=== PATIENT | female | born 1995 | race Caucasian/White ===

== ENCOUNTER → 2019-12-20 | Outpatient (CLI) | payer OTHER | END | disposition home or self-care (01) | LOC: LAB 13:51 | PROVIDERS: ATTEND Internal Medicine Pulmonary Disease | DX: Z20.828 Contact with and (suspected) exposure to other viral communicable diseases (principal) | CPT/HCPCS: C9803; U0003 ==

== ENCOUNTER 2021-07-01 14:19 | Observation (INO) | payer OTHER ==
[~2021-07-01] VITALS: Ht 165.1 cm; Wt 75.0 kg
[2021-07-01] MEDS ORDERED: IV NORMAL SALINE 1000ML BAG 1,000 ML IV SCH (15:00)
--- NOTE | 2021-07-01 15:09 | PHYS DOC ---
Past Medical History Past Medical History: UTI Additional Past Medical Histor: chiari malformation type 1 Past Surgical History: Tonsillectomy, Other Additional Past Surgical Histo: BILAT. EAR, FACE reconstruction,brain stem decompression Smoking Status: Never Smoker Alcohol Use: None Drug Use: None General Adult EDM: Chief Complaint: Palpitations HPI: HPI: Patient is a 25 year old female who presents with who states for the last 2 to 3 weeks she has been having episodes of her " heart beating really hard and fast causing her shortness of breath, nausea and dizziness". She states that she could just be sitting there and this happens. She was currently here at work on lunch when this happened again. She states that she stood up to go blow her nose and she felt dizzy and lightheaded and " saw stars". She states she gets intermittent sharp stabbing chest pains in the left side. Denies abdominal pain, fever, cough, headache, vision change, focal weakness, numbness or tingling, diarrhea, urinary symptoms, back pain, syncope, recent fall or striking her head. She takes propranolol for her migraines. She states that she started this medicine back in April. She has a history of a bilateral ear and face reconstruction, tonsillectomy, Chiari malformation, brainstem de compression. She wore a Holter monitor after going to [facility] on June 18 with her symptoms. She has been on a Holter monitor that was ordered by her PCP which his nurse practitioner with last name is Royer. Patient wore the Holter monitor June 24 through today. Currently no chest pain. Review of Systems: Review of Systems: Constitutional: Denies fever or chills. [] Eyes: Denies change in visual acuity. [] HENT: Denies nasal congestion or sore throat. [] Respiratory: Denies cough or +shortness of breath. [] Cardiovascular: + Intermittent chest pain or denies edema. + Palpitations [] GI: Denies abdominal pain, +nausea, denies vomiting, bloody stools or diarrhea. [] : Denies dysuria. [] Musculoskeletal: Denies back pain or joint pain. [] Integument: Denies rash. [] Neurologic: Denies headache, focal weakness or sensory changes. [] Endocrine: Denies polyuria or polydipsia. [] Lymphatic: Denies swollen glands. [] Psychiatric: Denies depression or anxiety. [] Heart Score: C/O Chest Pain: Yes HEART Score for Chest Pain: HEART Score for Chest Pain Response (Comments) Value History Slighlty/Non-Suspicious 0 ECG Nonspecific Repolarizatio 1 Age < 45 0 Risk Factors No Risk Factors 0 Troponin < Normal Limit 0 Total 1 Risk Factors: Risk Factors: DM, Current or recent (<one month) smoker, HTN, HLP, family history of CAD, obesity. Risk Scores: Score 0 - 3: 2.5% MACE over next 6 weeks - Discharge Home Score 4 - 6: 20.3% MACE over next 6 weeks - Admit for Clinical Observation Score 7 - 10: 72.7% MACE over next 6 weeks - Early Invasive Strategies Current Medications: Current Medications Medications (Trade) Dose Ordered Sig/Ralph Start Time Stop Time Status Last Admin Dose Admin Sodium Chloride 1,000 ml @ 1,000 mls/hr Q1H 07/01/21 15:00 07/01/21 15:59 Allergies: Allergies: Allergies Coded Allergies Type Severity Reaction Last Updated Verified cefdinir Allergy Severe anaphylaxis 07/01/21 Yes medium chain triglycerides Allergy Severe anaphylaxis 07/01/21 Yes azithromycin Allergy Intermediate hives 07/01/21 Yes sulfamethoxazole Allergy Intermediate hives 07/01/21 Yes trimethoprim Allergy Intermediate hives 07/01/21 Yes Uncoded Allergies Type Severity Reaction Last Updated Verified gadobenate dimeglumine Allergy Severe anaphylaxis, hives 07/01/21 Physical Exam: PE: Constitutional: Well developed, well nourished, no acute distress, non-toxic appearance. [] HENT: Normocephalic, atraumatic, bilateral external ears normal, oropharynx moist, no oral exudates, nose normal. [] Eyes: PERRLA, EOMI, conjunctiva normal, no discharge. [] Neck: Normal range of motion, no tenderness, supple, no stridor. [] Cardiovascular:Heart rate regular rhythm with intermittent PVC, no murmur [] Lungs & Thorax: Bilateral breath sounds clear to auscultation [] Abdomen: Bowel sounds normal, soft, no tenderness, no masses, no pulsatile masses. [] Skin: Warm, dry, no erythema, no rash. [] Back: No tenderness, no CVA tenderness. [] Extremities: No tenderness, no cyanosis, no clubbing, ROM intact, no edema. [] Neurologic: Alert and oriented X 3, normal motor function, normal sensory function, no focal deficits noted. [] Psychologic: Affect normal, judgement normal, mood normal. [] Current Patient Data: Vital Signs: Vital Signs Date Time Temp Pulse Resp B/P (MAP) Pulse Ox O2 Delivery O2 Flow Rate FiO2 07/01/21 14:29 97.8 91 20 122/66 (84) 98 Room Air 97.8 EKG: EK and read by Dr. Eaton is a sinus rhythm and no STEMI Radiology/Procedures: Radiology/Procedures: [] Impression: [facility] [address] [place] [address] IMAGING REPORT Signed PATIENT: RAJESH JUSTIN DACCOUNT: [id number] : 1995 LOCATION: ER AGE: 25 SEX: F EXAM STATUS: PRE ER ORD. PHYSICIAN: DEJAH MAGANA APRN REASON: palpitations PROCEDURE: PORTABLE CHEST 1V Study: XR CHEST 1V Indication: Palpitations. Comparison: None. Findings: The cardiomediastinal silhouette and reema are within normal limits. No localized airspace opacity, pleural effusion or pneumothorax. Relatively symmetric haziness at the periphery of the lower lungs is typical of summation artifact from the breasts. Impression: No acute radiographic abnormality of the chest. Electronically signed by: MELISSA WASHINGTON MD (07/01/2021 3:04 PM) [facility] DICTATED and SIGNED BY: MELISSA WASHINGTON MD DATE: 07/01/21 [id number] [facility] [address] [place] [address] IMAGING REPORT Signed PATIENT: RAJESH KRUGER ACCOUNT: [id number] : 1995 LOCATION: ER AGE: 25 SEX: F EXAM STATUS: REG ER ORD. PHYSICIAN: DEJAH MAGANA APRN REASON: frequent pvc, chest pain with dizziness, soa and tachycardia PROCEDURE: CT ANGIOGRAPHY CHEST Exam: CT of chest with contrast INDICATION: Frequent PTC, chest pain TECHNIQUE: Sequential axial images through the chest obtained following the administration of 98 mL of Isovue-370 IV contrast. Sagittal and coronal reformatted images were reconstructed from the axial data and reviewed. Exposure: One or more of the following in the visualized dose reduction techniques were utilized for this examination: 1. Automated exposure control 2. Adjustment of the MA and/or KV according to patient size 3. Use of iterative of reconstructive technique Comparisons: Chest x-ray same day FINDINGS: Visualized portions of the thyroid are unremarkable. No enlarged mediastinal lymph nodes are identified. Heart size is normal. No pericardial effusion. Thoracic aorta has normal course and caliber. Pulmonary artery is not enlarged. No pulmonary embolus identified within the main, lobar or segmental pulmonary arteries. Airways are patent. No consolidation or pneumothorax. No suspicious lung nodules. No pleural effusion or thickening. Visualized upper abdomen is unremarkable. No suspicious osseous lesions or acute fractures. IMPRESSION: No pulmonary embolus identified within the main, lobar or segmental pulmonary arteries. Electronically signed by: Lety Jones MD (07/01/2021 8:02 PM) [facility] DICTATED and SIGNED BY: LETY JONES MD DATE: 07/01/[id number] 0 Course & Med Decision Making: Course & Med Decision Making Pertinent Labs and Imaging studies reviewed. (See chart for details) See HPI. Alert and oriented x4. Speaks in full clear sentences. Skin pink warm and dry. No edema. Patient called out stating that she was having a pounding heartbeat with shortness of breath and some chest pain and when looking at the monitor she was having some PVCs and her heart rate jumped up to 104- 105. It then dropped back down into 80 to 90s. Radiologist called and told me that her chest angio showed no PE and no other acute findings. She continues to have episodes with some frequent PVCs. This is intermittent. Patient is very anxious. I spoke with the patient and told her that she is probably stable to go home but if she was worried I could also admit her to the hospital for observation. I did talk to Dr. Avalos and he stated he could either try to get her close follow-up or she can be seen in the morning and be observed overnight. Patient states she would rather be observed overnight. Patient states that she supposed to turn in the Holter monitor tomorrow and so she does not know when she is even cannot have results back. I offered the patient admission due to her becoming symptomatic today with shortness of breath, chest pain, dizziness and near syncope. Blood work is otherwise unremarkable. [] Dragon Disclaimer: Dragon Disclaimer: This electronic medical record was generated, in whole or in part, using a voice recognition dictation system. Departure Departure Impression: Primary Impression: Arrhythmia Qualified Codes: I49.9 - Cardiac arrhythmia, unspecified Disposition: ADMITTED INPATIENT Admitting Physician: HIMTon Condition: STABLE Referrals: JOHANNA ISBELL MD (PCP) DEJAH MAGANA APRN Jul 01, 2021 15:09
[2021-07-01 15:19] LABS: BILIRUBIN,URINE NEGATIVE (NEG); CLARITY,URINE CLEAR; COLOR,URINE YELLOW; NITRITE,URINE NEGATIVE (NEG); PH,URINE 6.5 (<5.0-8.0); PROTEIN,URINE NEGATIVE (NEG-TRACE); UROBILINOGEN,URINE 0.2 mg/dL (0.2 mg/dL)
[2021-07-01 15:26] LABS: BARBITURATES NEG (NEG); BENZODIAZEPINES POS (NEG); CANNABINOIDS NEG (NEG); COCAINE NEG (NEG); METHADONE NEG (NEG); OPIATES NEG (NEG); PHENCYCLIDINE NEG (NEG)
[2021-07-01 15:29] LABS: AMPHETAMINE/METHAMPHETAMINE NEG (NEG)
[2021-07-01 15:32] LABS: BASO % 1 % (0-3); EOS # 0.2 x10^3/uL (0.0-0.7); EOS % 3 % (0-3); HEMATOCRIT 37.4 % (36.0-47.0); HEMOGLOBIN 12.3 g/dL (12.0-15.5); LYMPH # 2.8 x10^3/uL (1.0-4.8); LYMPH % 44 % (24-48); MEAN CORPUSCULAR HEMOGLOBIN 30 pg (25-35); MEAN CORPUSCULAR HGB CONC 33 g/dL (31-37); MEAN CORPUSCULAR VOLUME 91 fL (79-100); MONO # 0.5 x10^3/uL (0.0-1.1); MONO % 8 % (0-9); NEUT # 2.9 x10^3/uL (1.8-7.7); NEUT % 45 % (31-73); PLATELET COUNT 256 x10^3/uL (140-400); RED BLOOD COUNT 4.13 x10^6/uL (3.50-5.40); RED CELL DISTRIBUTION WIDTH 12.8 % (11.5-14.5); WHITE BLOOD COUNT 6.3 x10^3/uL (4.0-11.0)
[2021-07-01 15:38] LABS: BACTERIA,URINE 0 /HPF (0-FEW); RBC,URINE 0 /HPF (0-2); WBC,URINE 0 /HPF (0-4)
[2021-07-01 15:42] LABS: CALCIUM 8.4 mg/dL (8.5-10.1); CREATININE 0.9 mg/dL (0.6-1.0); GFR 77.6; POTASSIUM 3.5 mmol/L (3.5-5.1)
[2021-07-01 15:48] LABS: ALBUMIN 3.5 g/dL (3.4-5.0); ALBUMIN/GLOBULIN RATIO 0.9 (1.0-1.7); MAGNESIUM 1.9 mg/dL (1.8-2.4); TOTAL BILIRUBIN 0.3 mg/dL (0.2-1.0); TOTAL PROTEIN 7.5 g/dL (6.4-8.2)
[2021-07-01] MEDS ORDERED: IOHEXOL 350 MG/ML 100 ML VIAL. IV ONE (16:00)
[2021-07-01] MEDS ORDERED: CONTRAST GIVEN. MC PRN (16:15)
--- NOTE | 2021-07-01 19:54 | PDOC1 ---
History and Physical Date of Service: DOS: DATE: 07/01/21 TIME: 19:47 Chief Complaint: Chief Complain: Palpitations History of Present Illness: HPI: 25 year old female who presents with who states for the last 2 to 3 weeks she has been having episodes of her " heart beating really hard and fast causing her shortness of breath, nausea and dizziness". She states that she could just be sitting there and this happens. She was currently here at work on lunch when this happened again. She states that she stood up to go blow her nose and she felt dizzy and lightheaded and " saw stars". She states she gets intermittent sharp stabbing chest pains in the left side. Denies abdominal pain, fever, cough, headache, vision change, focal weakness, numbness or tingling, diarrhea, urinary symptoms, back pain, syncope, recent fall or striking her head. She takes propranolol for her migraines. She states that she started this medicine back in April. She has a history of a bilateral ear and face reconstruction, tonsillectomy, Chiari malformation, brainstem decompression. She wore a Holter monitor after going to [facility] on June 18 with her symptoms. She has been on a Holter monitor that was ordered by her PCP which his nurse practitioner with last name is Royer. Patient wore the Holter monitor June 24 through today. Currently no chest pain. Past Medical/Surgical History: PMH/PSH: Past Medical History: UTI, chiari malformation type 1 Past Surgical History: Tonsillectomy, BILAT. EAR, FACE reconstruction,brain stem decompression Smoking Status: Never Smoker Alcohol Use: None Drug Use: None Allergies: Allergies: Coded Allergies: cefdinir (Verified Allergy, Severe, anaphylaxis, 07/01/21) gadobenic acid (Verified Allergy, Severe, ANAPHYLAXIS, HIVES, 07/01/21) gadobenate dimeglumine medium chain triglycerides (Verified Allergy, Severe, anaphylaxis, 07/01/21) azithromycin (Verified Allergy, Intermediate, hives, 07/01/21) sulfamethoxazole (Verified Allergy, Intermediate, hives, 07/01/21) trimethoprim (Verified Allergy, Intermediate, hives, 07/01/21) Family History: Family History: Reviewed with no relevant findings in the chart Social History: Social History: Smoking Status: Never Smoker Alcohol Use: None Drug Use: None Current Medications: Current Medications Current Medications Sodium Chloride 1,000 ml @ 1,000 mls/hr Q1H IV Last administered on 07/01/21at 15:00; Start 07/01/21 at 15:00; Stop 07/01/21 at 15:59; Status DC Iohexol (Omnipaque 350 Mg/ml) 100 ml 1X ONCE IV Last administered on 07/01/21at 16:14; Start 07/01/21 at 16:00; Stop 07/01/21 at 16:05; Status DC Info (CONTRAST GIVEN -- Rx MONITORING) 1 each PRN DAILY PRN MC SEE COMMENTS; Start 07/01/21 at 16:15; Stop 07/03/21 at 16:14 ROS: Review of Systems Review of System REVIEW OF SYSTEMS: GENERAL: Denies weakness SKIN: No bruising, hair changes or rashes. EYES: No blurred, double or loss of vision. NOSE AND THROAT: No history of nosebleeds, hoarseness or sore throat. HEART: Positive for palpitations LUNGS: Denies cough, hemoptysis, wheezing or shortness of breath. GASTROINTESTINAL: Denies changes in appetite, nausea, vomiting, diarrhea or constipation. GENITOURINARY: No history of frequency, urgency, hesitancy or nocturia. NEUROLOGIC: Denies history of numbness, tingling, or tremor. PSYCHIATRIC: No history of panic, anxiety or depression. ENDOCRINE: No history of heat or cold intolerance, polyuria or polydipsia. EXTREMITIES: Denies joint pain, pain on walking or stiffness. Physical Exam: Vital Signs: Vital Signs Date Time Temp Pulse Resp B/P (MAP) Pulse Ox O2 Delivery O2 Flow Rate FiO2 07/01/21 19:15 96 16 122/67 (85) 100 07/01/21 14:45 98.6 Room Air 98.6 Physcial Exam: General: Well developed, well nourished, no acute distress, well appearing HEENT: Pupils equally round and reactive to light, EOMI, no discharge, normal conjunctiva Neck: Supple, no nuchal rigidity, no JVD, trachea midline, no tenderness Cardiac: RRR, no murmurs, no gallops, no rubs Chest/Lungs: CTAB, no wheeze, no rhonchi, no crackles Abdomen: soft, non-distended, no guarding, no peritoneal signs, non-tender Back: No tenderness Extremities: no edema, pulses intact, non-tender,capillary refill <3 sec b ilateral upper and lower extremities, Neuro: Alert and oriented x 4, no focal deficits, normal speech 39 Labs: Labs: Laboratory Tests Test 07/01/21 14:50 07/01/21 14:57 07/01/21 15:10 07/01/21 15:38 Urine Collection Type Unknown Urine Color Yellow Urine Clarity Clear Urine pH 6.5 (<5.0-8.0) Urine Specific [place] 1.020 (1.000-1.030) Urine Protein Negative mg/dL (NEG-TRACE) Urine Glucose (UA) Negative mg/dL (NEG) Urine Ketones (Stick) Negative mg/dL (NEG) Urine Blood Negative (NEG) Urine Nitrite Negative (NEG) Urine Bilirubin Negative (NEG) Urine Urobilinogen Dipstick 0.2 mg/dL (0.2 mg/dL) Urine Leukocyte Esterase Negative (NEG) Urine RBC 0 /HPF (0-2) Urine WBC 0 /HPF (0-4) Urine Squamous Epithelial Cells Few /LPF Urine Bacteria 0 /HPF (0-FEW) Urine Opiates Screen Neg (NEG) Urine Methadone Screen Neg (NEG) Urine Barbiturates Neg (NEG) Urine Phencyclidine Screen Neg (NEG) Urine Amphetamine/Methamphetamine Neg (NEG) Urine Benzodiazepines Screen Pos (NEG) Urine Cocaine Screen Neg (NEG) Urine Cannabinoids Screen Neg (NEG) Urine Ethyl Alcohol Neg (NEG) Bedside Urine HCG, Qualitative Hcg negative (Negative) White Blood Count 6.3 x10^3/uL (4.0-11.0) Red Blood Count 4.13 x10^6/uL (3.50-5.40) Hemoglobin 12.3 g/dL (12.0-15.5) Hematocrit 37.4 % (36.0-47.0) Mean Corpuscular Volume 91 fL (79-100) Mean Corpuscular Hemoglobin 30 pg (25-35) Mean Corpuscular Hemoglobin Concent 33 g/dL (31-37) Red Cell Distribution Width 12.8 % (11.5-14.5) Platelet Count 256 x10^3/uL (140-400) Neutrophils (%) (Auto) 45 % (31-73) Lymphocytes (%) (Auto) 44 % (24-48) Monocytes (%) (Auto) 8 % (0-9) Eosinophils (%) (Auto) 3 % (0-3) Basophils (%) (Auto) 1 % (0-3) Neutrophils # (Auto) 2.9 x10^3/uL (1.8-7.7) Lymphocytes # (Auto) 2.8 x10^3/uL (1.0-4.8) Monocytes # (Auto) 0.5 x10^3/uL (0.0-1.1) Eosinophils # (Auto) 0.2 x10^3/uL (0.0-0.7) Basophils # (Auto) 0.0 x10^3/uL (0.0-0.2) Sodium Level 140 mmol/L (136-145) Potassium Level 3.5 mmol/L (3.5-5.1) Chloride Level 105 mmol/L (98-107) Carbon Dioxide Level 25 mmol/L (21-32) Anion Gap 10 (6-14) Blood Urea Nitrogen 17 mg/dL (7-20) Creatinine 0.9 mg/dL (0.6-1.0) Estimated GFR (Cockcroft-Gault) 77.6 BUN/Creatinine Ratio 19 (6-20) Glucose Level 121 mg/dL (70-99) Calcium Level 8.4 mg/dL (8.5-10.1) Magnesium Level 1.9 mg/dL (1.8-2.4) Total Bilirubin 0.3 mg/dL (0.2-1.0) Aspartate Amino Transf (AST/SGOT) 19 U/L (15-37) Alanine Aminotransferase (ALT/SGPT) 27 U/L (14-59) Alkaline Phosphatase 77 U/L (46-116) Troponin I High Sensitivity 4 ng/L (4-50) JX-Evi-H-Type Natriuretic Peptide 31 pg/mL (0-124) Total Protein 7.5 g/dL (6.4-8.2) Albumin 3.5 g/dL (3.4-5.0) Albumin/Globulin Ratio 0.9 (1.0-1.7) Thyroid Stimulating Hormone (TSH) 1.051 uIU/mL (0.358-3.74) SARS-CoV-2 Antigen (Rapid) Negative (NEGATIVE) Test 07/01/21 18:00 Troponin I High Sensitivity 4 ng/L (4-50) Laboratory Tests Test 07/01/21 14:50 07/01/21 14:57 07/01/21 15:10 07/01/21 15:38 Urine Collection Type Unknown Urine Color Yellow Urine Clarity Clear Urine pH 6.5 (<5.0-8.0) Urine Specific [place] 1.020 (1.000-1.030) Urine Protein Negative mg/dL (NEG-TRACE) Urine Glucose (UA) Negative mg/dL (NEG) Urine Ketones (Stick) Negative mg/dL (NEG) Urine Blood Negative (NEG) Urine Nitrite Negative (NEG) Urine Bilirubin Negative (NEG) Urine Urobilinogen Dipstick 0.2 mg/dL (0.2 mg/dL) Urine Leukocyte Esterase Negative (NEG) Urine RBC 0 /HPF (0-2) Urine WBC 0 /HPF (0-4) Urine Squamous Epithelial Cells Few /LPF Urine Bacteria 0 /HPF (0-FEW) Urine Opiates Screen Neg (NEG) Urine Methadone Screen Neg (NEG) Urine Barbiturates Neg (NEG) Urine Phencyclidine Screen Neg (NEG) Urine Amphetamine/Methamphetamine Neg (NEG) Urine Benzodiazepines Screen Pos (NEG) Urine Cocaine Screen Neg (NEG) Urine Cannabinoids Screen Neg (NEG) Urine Ethyl Alcohol Neg (NEG) Bedside Urine HCG, Qualitative Hcg negative (Negative) White Blood Count 6.3 x10^3/uL (4.0-11.0) Red Blood Count 4.13 x10^6/uL (3.50-5.40) Hemoglobin 12.3 g/dL (12.0-15.5) Hematocrit 37.4 % (36.0-47.0) Mean Corpuscular Volume 91 fL (79-100) Mean Corpuscular Hemoglobin 30 pg (25-35) Mean Corpuscular Hemoglobin Concent 33 g/dL (31-37) Red Cell Distribution Width 12.8 % (11.5-14.5) Platelet Count 256 x10^3/uL (140-400) Neutrophils (%) (Auto) 45 % (31-73) Lymphocytes (%) (Auto) 44 % (24-48) Monocytes (%) (Auto) 8 % (0-9) Eosinophils (%) (Auto) 3 % (0-3) Basophils (%) (Auto) 1 % (0-3) Neutrophils # (Auto) 2.9 x10^3/uL (1.8-7.7) Lymphocytes # (Auto) 2.8 x10^3/uL (1.0-4.8) Monocytes # (Auto) 0.5 x10^3/uL (0.0-1.1) Eosinophils # (Auto) 0.2 x10^3/uL (0.0-0.7) Basophils # (Auto) 0.0 x10^3/uL (0.0-0.2) Sodium Level 140 mmol/L (136-145) Potassium Level 3.5 mmol/L (3.5-5.1) Chloride Level 105 mmol/L (98-107) Carbon Dioxide Level 25 mmol/L (21-32) Anion Gap 10 (6-14) Blood Urea Nitrogen 17 mg/dL (7-20) Creatinine 0.9 mg/dL (0.6-1.0) Estimated GFR (Cockcroft-Gault) 77.6 BUN/Creatinine Ratio 19 (6-20) Glucose Level 121 mg/dL (70-99) Calcium Level 8.4 mg/dL (8.5-10.1) Magnesium Level 1.9 mg/dL (1.8-2.4) Total Bilirubin 0.3 mg/dL (0.2-1.0) Aspartate Amino Transf (AST/SGOT) 19 U/L (15-37) Alanine Aminotransferase (ALT/SGPT) 27 U/L (14-59) Alkaline Phosphatase 77 U/L (46-116) Troponin I High Sensitivity 4 ng/L (4-50) PQ-Iba-M-Type Natriuretic Peptide 31 pg/mL (0-124) Total Protein 7.5 g/dL (6.4-8.2) Albumin 3.5 g/dL (3.4-5.0) Albumin/Globulin Ratio 0.9 (1.0-1.7) Thyroid Stimulating Hormone (TSH) 1.051 uIU/mL (0.358-3.74) SARS-CoV-2 Antigen (Rapid) Negative (NEGATIVE) Test 07/01/21 18:00 Troponin I High Sensitivity 4 ng/L (4-50) Images: Images PROCEDURE: PORTABLE CHEST 1V Study: XR CHEST 1V Indication: Palpitations. Comparison: None. Findings: The cardiomediastinal silhouette and reema are within normal limits. No localized airspace opacity, pleural effusion or pneumothorax. Relatively symmetric haziness at the periphery of the lower lungs is typical of summation artifact from the breasts. Impression: No acute radiographic abnormality of the chest. Assessment/Plan Assessment/Plan Symptomatic tachyarrhythmia with frequent PVCs History of Chiari malformation Admit to hospitalist service for further management Continue telemetry monitoring Pending cardiology consult Hold beta-blockers SCD for DVT prophylaxis Cardiac diet CODE STATUS full Discussed with RN and SW Disposition inpatient management as above, pending cardiology evaluation DPOA: Justifications for Admission Other Justification SANDRA MONTIEL MD Jul 01, 2021 19:54
--- NOTE | 2021-07-01 19:55 | EKG ---
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
--- NOTE | 2021-07-01 20:05 | RAD ---
Exam: CT of chest with contrast INDICATION: Frequent PTC, chest pain TECHNIQUE: Sequential axial images through the chest obtained following the administration of 98 mL o f Isovue-370 IV contrast. Sagittal and coronal reformatted images were reconstructed from the axial d rodger and reviewed. Exposure: One or more of the following in the visualized dose reduction techniques were utilized for this examination: 1. Automated exposure control 2. Adjustment of the MA and/or KV according to patient size 3. Use of iterative of reconstructive technique Comparisons: Chest x-ray same day FINDINGS: Visualized portions of the thyroid are unremarkable. No enlarged mediastinal lymph nodes are identifi ed. Heart size is normal. No pericardial effusion. Thoracic aorta has normal course and caliber. Pulmonar y artery is not enlarged. No pulmonary embolus identified within the main, lobar or segmental pulmona ry arteries. Airways are patent. No consolidation or pneumothorax. No suspicious lung nodules. No pleural effusion or thickening. Visualized upper abdomen is unremarkable. No suspicious osseous lesions or acute fractures. IMPRESSION: No pulmonary embolus identified within the main, lobar or segmental pulmonary arteries. Electronically signed by: Lety Newton MD (07/01/2021 8:02 PM) [facility]
--- NOTE | 2021-07-01 22:00 | NUR ---
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 POc explained vs obtained and stable call light placed ion reach will resume care and continue to monitor pt.
[2021-07-01 22:10] VITALS: BP 110/70
[2021-07-02] MEDS ORDERED: DROS4TAB PO (02:21)
[2021-07-02] MEDS ORDERED: SUMA50TA4 PO (02:21)
[2021-07-02] MEDS ORDERED: PROP60CA44 PO (02:21)
[2021-07-02] MEDS ORDERED: TIZA-75 PO (02:21)
[2021-07-02 02:29] VITALS: BP 106/61
[2021-07-02] MEDS ORDERED: ACET500T68 PO (02:29)
[2021-07-02 07:00] VITALS: BP 103/64
[2021-07-02] MEDS ORDERED: tiZANidine 4 MG TABLET. PO PRN (09:15)
[2021-07-02] MEDS ORDERED: ONDANSETRON PF 4 MG/2 ML VIAL. IVP PRN (09:30)
[2021-07-02] MEDS ORDERED: ELECTROLYTE (NON-ICU) PROTOCOL. MC PRN (09:30)
[2021-07-02] MEDS ORDERED: ZOLPIDEM 5 MG TABLET. PO PRN (09:30)
[2021-07-02] MEDS ORDERED: oxyCODONE/APAP 5/325 1 TAB TABLET PO PRN ×2 (09:30)
[2021-07-02] MEDS ORDERED: CALCIUM CARBONATE 500 MG TAB.CHEW PO PRN (09:30)
[2021-07-02] MEDS ORDERED: SENNOSIDES/DOCUSATE 8.6/50MG TABLET. PO SCH (10:00)
[2021-07-02] MEDS ORDERED: PROPRANOLOL ER 60 MG CAP.SA.24H. PO SCH (10:00)
[2021-07-02] MEDS: HEPARIN for SUB-Q USE 5,000 UNIT/ML VIAL. SQ SCH ×2 (10:12→14:58)
[2021-07-02] MEDS: ACETAMINOPHEN 325 MG TABLET. PO PRN ×2 (10:19→16:40)
--- NOTE | 2021-07-02 10:28 | PDOC2 ---
NEEMA WOODSON AGRICULTURAL SYSTEMS SPECIALIST 07/02/21 1028: CARDIAC CONSULT DATE OF CONSULT Date of Consult DATE: 07/02/21 TIME: 10:09 REASON FOR CONSULT Reason for Consult: Arrhythmia REFERRING PHYSICIAN Referring Physician: Stephanie SOURCE Source: Chart review, Patient HISTORY OF PRESENT ILLNESS HISTORY OF PRESENT ILLNESS This is a pleasant 25 yo female admitted for complains of palpitations. She has been having episodes of fast heart rate at home noting at times in the 120s and at times feeling dizzy. No prior fever and chills. Also at times feels like chest pressure and noting it whenever she has PVC as she noted while she was having trigeminy in ED as she showed me the picture of her telemetry. No prior falls or injury. No covid-19 s/s and she is unvaccinated. She went to an [employer] and was issued with an MCOT which is due to be returned today. Denies any recreationsl drug use nor tobacco. No stimulants. She does take propranolol regularly for her migraine and she has not taken sumatriptan in the last few days. She tried to cough when her heart rate was fast but it did not quit. No hx of VTE, valvular disease as a child but her mother does have similar fluctuations in her HR. PAST MEDICAL HISTORY CENTRAL NERVOUS SYSTEM: Migraine (with aura), Other (chiari malformation with surgical decompression) PAST SURGICAL HISTORY Past Surgical History: Tonsillectomy, Other (facial reconstruction) FAMILY HISTORY Family History: Hypertension, Other (mother has tachycardia issue as well unknown type) SOCIAL HISTORY Smoke: No ALCOHOL: occassional Drugs: None Lives: with Family CURRENT MEDICATIONS CURRENT MEDICATIONS Current Medications Medications (Trade) Dose Ordered Sig/Ralph Route PRN Reason Start Time Stop Time Status Last Admin Dose Admin Sodium Chloride 1,000 ml @ 1,000 mls/hr Q1H IV 07/01/21 15:00 07/01/21 15:59 DC 07/01/21 15:00 Iohexol (Omnipaque 350 Mg/ml) 100 ml 1X ONCE IV 07/01/21 16:00 07/01/21 16:05 DC 07/01/21 16:14 ALLERGIES ALLERGIES: Coded Allergies: cefdinir (Verified Allergy, Severe, anaphylaxis, 07/01/21) gadobenic acid (Verified Allergy, Severe, ANAPHYLAXIS, HIVES, 07/01/21) gadobenate dimeglumine medium chain triglycerides (Verified Allergy, Severe, anaphylaxis, 07/01) shrimp (Verified Allergy, Severe, 07/01/21) azithromycin (Verified Allergy, Intermediate, hives, 07/01/21) sulfamethoxazole (Verified Allergy, Intermediate, hives, 07/01/21) trimethoprim (Verified Allergy, Intermediate, hives, 07/01/21) ROS Review of System 14 point ROS evaluated with pertinent positives noted per HPI PHYSICAL EXAM General: Alert, Oriented X3, Cooperative, No acute distress HEENT: Atraumatic, Mucous membr. moist/pink Lungs: Clear to auscultation, Normal air movement Heart: Regular rate (SR), Normal S1, Normal S2, No murmurs Abdomen: Soft, No tenderness Extremities: No cyanosis, No edema Skin: No breakdown, No significant lesion Neuro: Normal speech, Sensation intact Psych/Mental Status: Mental status NL, Mood NL MUSCULOSKELETAL: Osteoarthritic changes both hands VITALS/I&O VITALS/I&O: Vital Signs Date Time Temp Pulse Resp B/P (MAP) Pulse Ox O2 Delivery O2 Flow Rate FiO2 07/02/21 07:00 99.0 116 16 103/64 (77) 97 Room Air 99.0 I & O 07/01/21 07/01/21 07/02/21 15:00 23:00 07:00 Intake Total 300 ml Balance 300 ml LABS Lab: Laboratory Tests Test 07/01/21 14:50 07/01/21 14:57 07/01/21 15:10 07/01/21 15:38 Urine Collection Type Unknown Urine Color Yellow Urine Clarity Clear Urine pH 6.5 (<5.0-8.0) Urine Specific [place] 1.020 (1.000-1.030) Urine Protein Negative mg/dL (NEG-TRACE) Urine Glucose (UA) Negative mg/dL (NEG) Urine Ketones (Stick) Negative mg/dL (NEG) Urine Blood Negative (NEG) Urine Nitrite Negative (NEG) Urine Bilirubin Negative (NEG) Urine Urobilinogen Dipstick 0.2 mg/dL (0.2 mg/dL) Urine Leukocyte Esterase Negative (NEG) Urine RBC 0 /HPF (0-2) Urine WBC 0 /HPF (0-4) Urine Squamous Epithelial Cells Few /LPF Urine Bacteria 0 /HPF (0-FEW) Urine Opiates Screen Neg (NEG) Urine Methadone Screen Neg (NEG) Urine Barbiturates Neg (NEG) Urine Phencyclidine Screen Neg (NEG) Urine Amphetamine/Methamphetamine Neg (NEG) Urine Benzodiazepines Screen Pos (NEG) Urine Cocaine Screen Neg (NEG) Urine Cannabinoids Screen Neg (NEG) Urine Ethyl Alcohol Neg (NEG) POC Urine HCG, Qualitative Hcg negative (Negative) White Blood Count 6.3 x10^3/uL (4.0-11.0) Red Blood Count 4.13 x10^6/uL (3.50-5.40) Hemoglobin 12.3 g/dL (12.0-15.5) Hematocrit 37.4 % (36.0-47.0) Mean Corpuscular Volume 91 fL (79-100) Mean Corpuscular Hemoglobin 30 pg (25-35) Mean Corpuscular Hemoglobin Concent 33 g/dL (31-37) Red Cell Distribution Width 12.8 % (11.5-14.5) Platelet Count 256 x10^3/uL (140-400) Neutrophils (%) (Auto) 45 % (31-73) Lymphocytes (%) (Auto) 44 % (24-48) Monocytes (%) (Auto) 8 % (0-9) Eosinophils (%) (Auto) 3 % (0-3) Basophils (%) (Auto) 1 % (0-3) Neutrophils # (Auto) 2.9 x10^3/uL (1.8-7.7) Lymphocytes # (Auto) 2.8 x10^3/uL (1.0-4.8) Monocytes # (Auto) 0.5 x10^3/uL (0.0-1.1) Eosinophils # (Auto) 0.2 x10^3/uL (0.0-0.7) Basophils # (Auto) 0.0 x10^3/uL (0.0-0.2) Sodium Level 140 mmol/L (136-145) Potassium Level 3.5 mmol/L (3.5-5.1) Chloride Level 105 mmol/L (98-107) Carbon Dioxide Level 25 mmol/L (21-32) Anion Gap 10 (6-14) Blood Urea Nitrogen 17 mg/dL (7-20) Creatinine 0.9 mg/dL (0.6-1.0) Estimated GFR (Cockcroft-Gault) 77.6 BUN/Creatinine Ratio 19 (6-20) Glucose Level 121 mg/dL (70-99) H Calcium Level 8.4 mg/dL (8.5-10.1) L Magnesium Level 1.9 mg/dL (1.8-2.4) Total Bilirubin 0.3 mg/dL (0.2-1.0) Aspartate Amino Transferase (AST) 19 U/L (15-37) Alanine Aminotransferase (ALT) 27 U/L (14-59) Alkaline Phosphatase 77 U/L (46-116) Troponin I High Sensitivity 4 ng/L (4-50) WW-Bzx-Z-Type Natriuretic Peptide 31 pg/mL (0-124) Total Protein 7.5 g/dL (6.4-8.2) Albumin 3.5 g/dL (3.4-5.0) Albumin/Globulin Ratio 0.9 (1.0-1.7) L Thyroid Stimulating Hormone (TSH) 1.051 uIU/mL (0.358-3.74) SARS-CoV-2 Antigen (Rapid) Negative (NEGATIVE) Test 07/01/21 18:00 07/01/21 20:35 Troponin I High Sensitivity 4 ng/L (4-50) 4 ng/L (4-50) Laboratory Tests 07/01/21 15:10 Laboratory Tests 07/01/21 15:10 ASSESSMENT/PLAN ASSESSMENT/PLAN 1. Palpitations: noted with sinus tachycardia and intermittent PVCs otherwise no significant SVTs. CTA chest unremarkable. could be induced by covid-19 2. Hx of chiari malformation with prior decompression 3. Migraine with aura 4. OCP: on progesterone 5. Covid-19: unvaccinated. ANGELA revealed negative at 1050 AM 07/02 and Positive at 07/01 1538 PM today and now with fever Recommendations 1. TTE 2. Will review MCOT once this gets returned and finalized 3. Discussed about vagal maneuvers 4. Will consider transitioning propranolol to metoprolol tartrate 25 po bid. HBPM and will obtain orthostatic readings 5. Consider alternative to triptans such as aimovig 6. Will need a referral from [facility] and establish follow up in our office. JAVIER STREETER MD 07/02/21 0682: CARDIAC CONSULT ASSESSMENT/PLAN ASSESSMENT/PLAN The patient was seen and interviewed as well as examined at the bedside. The chart was reviewed. The case was discussed. Agree with the plan of care. No significant arrhythmias noted. We will obtain outpatient monitor and will set her up for an outpatient stress test. Supportive care. NEEMA WOODSON APRN Jul 02, 2021 10:28 JAVIER STREETER MD Jul 02, 2021 17:32
--- NOTE | 2021-07-02 10:54 | PDOC1 ---
History and Physical Date of Service: DOS: DATE: 07/02/21 TIME: 10:26 Chief Complaint: Chief Complain: chest pain History of Present Illness: HPI: Patient is a 25-year-old female presented to emergency room overnight due to chest pain palpitations. 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 Significant history Chiari type I malformation and facial reconstructions. Patient was at work yesterday when she started having dizziness palpitations and shortness of breath. Patient was actually seen at [facility] for this a few weeks ago and is on a Holter monitor still waiting on results. Has had a few episodes since but they self resolved.. Yesterday was feeling chest pain palpitations dizziness and they were not resolving. Was recommended for her to go to the emergency room which she did. Evaluated this morning patient reported to me that these episodes really recurred randomly. Work-up at [facility] was pretty unremarkable but still waiting on Holter monitor results. Episodes not related to exertion. Said she can just be sitting and she would get it. In discussing with her she had multiple PVCs she said she could feel throughout the conversation. Reports she has heard patients with Chiari malformations having heart problems down the line. We will look into this further. At [facility] she said they also prescribed her Valium that she took for 4 days due to concern for panic attacks but patient says she did not really feel different from them. Past Medical/Surgical History: PMH/PSH: Chiari type I, migraines Allergies: Allergies: Coded Allergies: cefdinir (Verified Allergy, Severe, anaphylaxis, 07/01/21) gadobenic acid (Verified Allergy, Severe, ANAPHYLAXIS, HIVES, 07/01/21) gadobenate dimeglumine medium chain triglycerides (Verified Allergy, Severe, anaphylaxis, 07/01/21) shrimp (Verified Allergy, Severe, 07/01/21) azithromycin (Verified Allergy, Intermediate, hives, 07/01/21) sulfamethoxazole (Verified Allergy, Intermediate, hives, 07/01/21) trimethoprim (Verified Allergy, Intermediate, hives, 07/01/21) Family History: Family History: Hypertension Social History: Social History: Denies alcohol tobacco drug use Current Medications: Current Medications Current Medications Sodium Chloride 1,000 ml @ 1,000 mls/hr Q1H IV Last administered on 07/01/21at 15:00; Start 07/01/21 at 15:00; Stop 07/01/21 at 15:59; Status DC Iohexol (Omnipaque 350 Mg/ml) 100 ml 1X ONCE IV Last administered on 07/01/21at 16:14; Start 07/01/21 at 16:00; Stop 07/01/21 at 16:05; Status DC Info (CONTRAST GIVEN -- Rx MONITORING) 1 each PRN DAILY PRN MC SEE COMMENTS; Start 07/01/21 at 16:15; Stop 07/03/21 at 16:14 Propranolol HCl (Inderal La) 60 mg DAILY PO Last administered on 07/02/21at 10:13; Start 07/02/21 at 10:00 Tizanidine HCl (Zanaflex) 2 mg PRN BID PRN PO MUSCLE SPASMS; Start 07/02/21 at 09:15 Ondansetron HCl (Zofran) 4 mg PRN Q6HRS PRN IVP NAUSEA/VOMITING; Start 07/02/21 at 09:30 Calcium Carbonate/ Glycine (Tums) 500 mg PRN Q3HRS PRN PO UPSET STOMACH; Start 07/02/21 at 09:30 Zolpidem Tartrate (Ambien) 5 mg PRN QHS PRN PO INSOMNIA, MAY REPEAT IN 1HR; Start 07/02/21 at 09:30 Info (Non-Icu Electrolyte Protocol) 1 ea PRN DAILY PRN MC SEE COMMENTS; Start 07/02/21 at 09:30 Oxycodone/ Acetaminophen (Percocet 5/325) 1 tab PRN Q4HRS PRN PO MILD PAIN, 1ST CHOICE; Start 07/02/21 at 09:30 Oxycodone/ Acetaminophen (Percocet 5/325) 2 tab PRN Q4HRS PRN PO MODERATE PAIN, SEVERE PAIN; Start 07/02/21 at 09:30 Acetaminophen (Tylenol) 650 mg PRN Q6HRS PRN PO Headaches, Temp > 101.5F Last administered on 07/02/21at 10:19; Start 07/02/21 at 09:30 Senna/Docusate Sodium (Senna Plus) 1 tab BID PO ; Start 07/02/21 at 10:00 Heparin Sodium (Porcine) (Heparin Sodium) 5,000 unit Q8HRS SQ Last administered on 07/02/21at 10:12; Start 07/02/21 at 09:30 Active Scripts Active Reported Acetaminophen 500 Mg Tablet 2 Tab PO PRN DAILY PRN 15 Days Tizanidine Hcl 4 Mg Tablet 0.5 Tab PO PRN PRN Sumatriptan Succinate 50 Mg Tablet 0.5 Tab PO PRN Propranolol Hcl 60 Mg Cap.sa.24h 1 Cap PO DAILY Slynd (Drospirenone) 4 Mg Tablet 1 Tab PO DAILY ROS: Review of Systems Review of System Unless noted in HPI 14 point review of systems is negative Physical Exam: Vital Signs: Vital Signs Date Time Temp Pulse Resp B/P (MAP) Pulse Ox O2 Delivery O2 Flow Rate FiO2 07/02/21 10:13 116 103/64 07/02/21 07:00 99.0 16 97 Room Air 99.0 Physcial Exam: GEN: No apparent distress. Alert and oriented HEENT: Normal cephalic, atraumatic, external auditory canals are patent EYES: Extraocular muscles are intact, pupil are equally round and reactive to light and accommodation MUSCULOSKELETAL: Well developed , well nourished, good range of motion ENDOCRINE: No thyromegaly was palpated LYMPHATICS: No cervical chain or axillary nodes were noted HEMATOPOIETIC: No bruising NECK: Supple, no JVD, no thyromegaly was noted LUNGS: Clear to auscultation in all lung olson without rhonchi or wheezing HEART: RRR, S!, S2 present. Peripheral pulses intact, no obvious murmurs noted ABDOMEN: Soft, nontender. Positive bowel sounds, no organomegaly, normal bowel sounds EXTREMITIES: Without clubbing, cyanosis, or edema. Pedal pulses intact. Negative Homans sign NEUROLOGIC: Normal speech and tone. A&O x 3, moves all extremities, no ob vious focal deficits PSYCHIATRIC: Normal affect, normal mood. Stable SKIN: No ulcerations or rashes, good skin turgor, no jaundice VASCULAR: Good capillary refill, neurovascular bundle appears to be intact Labs: Labs: Laboratory Tests Test 07/01/21 14:50 07/01/21 14:57 07/01/21 15:10 07/01/21 15:38 Urine Collection Type Unknown Urine Color Yellow Urine Clarity Clear Urine pH 6.5 (<5.0-8.0) Urine Specific [place] 1.020 (1.000-1.030) Urine Protein Negative mg/dL (NEG-TRACE) Urine Glucose (UA) Negative mg/dL (NEG) Urine Ketones (Stick) Negative mg/dL (NEG) Urine Blood Negative (NEG) Urine Nitrite Negative (NEG) Urine Bilirubin Negative (NEG) Urine Urobilinogen Dipstick 0.2 mg/dL (0.2 mg/dL) Urine Leukocyte Esterase Negative (NEG) Urine RBC 0 /HPF (0-2) Urine WBC 0 /HPF (0-4) Urine Squamous Epithelial Cells Few /LPF Urine Bacteria 0 /HPF (0-FEW) Urine Opiates Screen Neg (NEG) Urine Methadone Screen Neg (NEG) Urine Barbiturates Neg (NEG) Urine Phencyclidine Screen Neg (NEG) Urine Amphetamine/Methamphetamine Neg (NEG) Urine Benzodiazepines Screen Pos (NEG) Urine Cocaine Screen Neg (NEG) Urine Cannabinoids Screen Neg (NEG) Urine Ethyl Alcohol Neg (NEG) Bedside Urine HCG, Qualitative Hcg negative (Negative) White Blood Count 6.3 x10^3/uL (4.0-11.0) Red Blood Count 4.13 x10^6/uL (3.50-5.40) Hemoglobin 12.3 g/dL (12.0-15.5) Hematocrit 37.4 % (36.0-47.0) Mean Corpuscular Volume 91 fL (79-100) Mean Corpuscular Hemoglobin 30 pg (25-35) Mean Corpuscular Hemoglobin Concent 33 g/dL (31-37) Red Cell Distribution Width 12.8 % (11.5-14.5) Platelet Count 256 x10^3/uL (140-400) Neutrophils (%) (Auto) 45 % (31-73) Lymphocytes (%) (Auto) 44 % (24-48) Monocytes (%) (Auto) 8 % (0-9) Eosinophils (%) (Auto) 3 % (0-3) Basophils (%) (Auto) 1 % (0-3) Neutrophils # (Auto) 2.9 x10^3/uL (1.8-7.7) Lymphocytes # (Auto) 2.8 x10^3/uL (1.0-4.8) Monocytes # (Auto) 0.5 x10^3/uL (0.0-1.1) Eosinophils # (Auto) 0.2 x10^3/uL (0.0-0.7) Basophils # (Auto) 0.0 x10^3/uL (0.0-0.2) Sodium Level 140 mmol/L (136-145) Potassium Level 3.5 mmol/L (3.5-5.1) Chloride Level 105 mmol/L (98-107) Carbon Dioxide Level 25 mmol/L (21-32) Anion Gap 10 (6-14) Blood Urea Nitrogen 17 mg/dL (7-20) Creatinine 0.9 mg/dL (0.6-1.0) Estimated GFR (Cockcroft-Gault) 77.6 BUN/Creatinine Ratio 19 (6-20) Glucose Level 121 mg/dL (70-99) Calcium Level 8.4 mg/dL (8.5-10.1) Magnesium Level 1.9 mg/dL (1.8-2.4) Total Bilirubin 0.3 mg/dL (0.2-1.0) Aspartate Amino Transf (AST/SGOT) 19 U/L (15-37) Alanine Aminotransferase (ALT/SGPT) 27 U/L (14-59) Alkaline Phosphatase 77 U/L (46-116) Troponin I High Sensitivity 4 ng/L (4-50) LQ-Ojj-H-Type Natriuretic Peptide 31 pg/mL (0-124) Total Protein 7.5 g/dL (6.4-8.2) Albumin 3.5 g/dL (3.4-5.0) Albumin/Globulin Ratio 0.9 (1.0-1.7) Thyroid Stimulating Hormone (TSH) 1.051 uIU/mL (0.358-3.74) SARS-CoV-2 Antigen (Rapid) Negative (NEGATIVE) Test 07/01/21 18:00 07/01/21 20:35 Troponin I High Sensitivity 4 ng/L (4-50) 4 ng/L (4-50) Laboratory Tests Test 07/01/21 14:50 07/01/21 14:57 07/01/21 15:10 07/01/21 15:38 Urine Collection Type Unknown Urine Color Yellow Urine Clarity Clear Urine pH 6.5 (<5.0-8.0) Urine Specific [place] 1.020 (1.000-1.030) Urine Protein Negative mg/dL (NEG-TRACE) Urine Glucose (UA) Negative mg/dL (NEG) Urine Ketones (Stick) Negative mg/dL (NEG) Urine Blood Negative (NEG) Urine Nitrite Negative (NEG) Urine Bilirubin Negative (NEG) Urine Urobilinogen Dipstick 0.2 mg/dL (0.2 mg/dL) Urine Leukocyte Esterase Negative (NEG) Urine RBC 0 /HPF (0-2) Urine WBC 0 /HPF (0-4) Urine Squamous Epithelial Cells Few /LPF Urine Bacteria 0 /HPF (0-FEW) Urine Opiates Screen Neg (NEG) Urine Methadone Screen Neg (NEG) Urine Barbiturates Neg (NEG) Urine Phencyclidine Screen Neg (NEG) Urine Amphetamine/Methamphetamine Neg (NEG) Urine Benzodiazepines Screen Pos (NEG) Urine Cocaine Screen Neg (NEG) Urine Cannabinoids Screen Neg (NEG) Urine Ethyl Alcohol Neg (NEG) Bedside Urine HCG, Qualitative Hcg negative (Negative) White Blood Count 6.3 x10^3/uL (4.0-11.0) Red Blood Count 4.13 x10^6/uL (3.50-5.40) Hemoglobin 12.3 g/dL (12.0-15.5) Hematocrit 37.4 % (36.0-47.0) Mean Corpuscular Volume 91 fL (79-100) Mean Corpuscular Hemoglobin 30 pg (25-35) Mean Corpuscular Hemoglobin Concent 33 g/dL (31-37) Red Cell Distribution Width 12.8 % (11.5-14.5) Platelet Count 256 x10^3/uL (140-400) Neutrophils (%) (Auto) 45 % (31-73) Lymphocytes (%) (Auto) 44 % (24-48) Monocytes (%) (Auto) 8 % (0-9) Eosinophils (%) (Auto) 3 % (0-3) Basophils (%) (Auto) 1 % (0-3) Neutrophils # (Auto) 2.9 x10^3/uL (1.8-7.7) Lymphocytes # (Auto) 2.8 x10^3/uL (1.0-4.8) Monocytes # (Auto) 0.5 x10^3/uL (0.0-1.1) Eosinophils # (Auto) 0.2 x10^3/uL (0.0-0.7) Basophils # (Auto) 0.0 x10^3/uL (0.0-0.2) Sodium Level 140 mmol/L (136-145) Potassium Level 3.5 mmol/L (3.5-5.1) Chloride Level 105 mmol/L (98-107) Carbon Dioxide Level 25 mmol/L (21-32) Anion Gap 10 (6-14) Blood Urea Nitrogen 17 mg/dL (7-20) Creatinine 0.9 mg/dL (0.6-1.0) Estimated GFR (Cockcroft-Gault) 77.6 BUN/Creatinine Ratio 19 (6-20) Glucose Level 121 mg/dL (70-99) Calcium Level 8.4 mg/dL (8.5-10.1) Magnesium Level 1.9 mg/dL (1.8-2.4) Total Bilirubin 0.3 mg/dL (0.2-1.0) Aspartate Amino Transf (AST/SGOT) 19 U/L (15-37) Alanine Aminotransferase (ALT/SGPT) 27 U/L (14-59) Alkaline Phosphatase 77 U/L (46-116) Troponin I High Sensitivity 4 ng/L (4-50) JD-Map-C-Type Natriuretic Peptide 31 pg/mL (0-124) Total Protein 7.5 g/dL (6.4-8.2) Albumin 3.5 g/dL (3.4-5.0) Albumin/Globulin Ratio 0.9 (1.0-1.7) Thyroid Stimulating Hormone (TSH) 1.051 uIU/mL (0.358-3.74) SARS-CoV-2 Antigen (Rapid) Negative (NEGATIVE) Test 07/01/21 18:00 07/01/21 20:35 Troponin I High Sensitivity 4 ng/L (4-50) 4 ng/L (4-50) Assessment/Plan Assessment/Plan Chest pain dizziness palpitations with frequent PVCs, history Chiari type I, CO VID-19 -Worsening chest pain dizziness palpitations yesterday. Went to ED for further evaluation -ER work-up pretty unremarkable. Previously seen and waiting on Holter results -Cardiology consulted. Planning for echo will need outpatient follow-up too -DVT prophylaxis -Cardiac diet -Home propranolol resumed. May switch to metoprolol per cardiology -Asymptomatic from Covid standpoint we will monitor Justifications for Admission Other Justification LARRY PATEL MD Jul 02, 2021 10:54
[2021-07-02 11:00] VITALS: BP 118/61
--- NOTE | 2021-07-02 11:03 | NUR ---
SS following for discharge planning. SS reviewed pt chart and discussed with pt RN. Pt is from home with spouse and is currently on room air. COVID19 positive. Cardiology consulted. Discharge plan is currently to home when medically ready for discharge. Insurance needing referral from PCP for Cardiology follow up. SS contacted PCP Dr. Luis Felipe López, , and requested referral for Director Of Analytics be completed for follow up. SS will continue to follow for discharge planning. Addendum: 07/02/21 at 1325 by AMBER ROSADO SS SS received return call from Dr. López's ACUTE CARE NURSE PRACTITIONER. All information needed provided for referral. Per ACUTE CARE NURSE PRACTITIONER, Dr. López will be back in the office tomorrow, 07/03/2021, morning and will send referral at that time for Cardiology. Pt's RN notified.
[2021-07-02 14:32] VITALS: BP 101/95
--- NOTE | 2021-07-02 18:07 | NUR ---
Patient discharge home with self care, via ambulation, accompanied by this RN and pt parents. Patient is stable, IV removed, and discharge paperwork given to patient. Patient verbalized understanding of followup and discharge instruction.
[2021-07-02] MEDS ORDERED: METOPROLOL TART IMMED RELEASE 25 MG TABLET. PO SCH (21:00)
== END 2021-07-02 18:09 | disposition home or self-care (01) ==
LOC: ER 14:19 → ED HOLD 19:17 → 6 SOUTH 20:41
PROVIDERS: ADMIT Internal Medicine; ATTEND Internal Medicine
DX: I49.9 Cardiac arrhythmia, unspecified (principal); Z20.822 Contact with and (suspected) exposure to COVID-19; R07.89 Other chest pain; R42 Dizziness and giddiness; R00.2 Palpitations; I49.3 Ventricular premature depolarization; I82.0 Budd-Chiari syndrome; G43.109 Migraine with aura, not intractable, without status migrainosus; G93.5 Compression of brain; Z87.442 Personal history of urinary calculi; Z90.49 Acquired absence of other specified parts of digestive tract; Z79.899 Other long term (current) drug therapy; Z98.890 Other specified postprocedural states
CPT/HCPCS: 36415; 71045; 71275; 80053; 80307; 81001; 81025; 83735; 83880; 84443; 84484; 85025; 87426; 93005; 96360; 96372; 99285; G0378; J1644; J7030; Q9967; U0003; U0005; G0379

== ENCOUNTER → 2021-07-06 | Outpatient (CLI) | payer OTHER ==
[2021-07-02 14:32] VITALS: BP 101/95
[~2021-07-06] MED LIST: ACET500T68 PO; DROS4TAB PO; PROP60CA44 PO; SUMA50TA4 PO; TIZA-75 PO
--- NOTE | 2021-07-07 11:35 | CARD ---
MR#: [id number] Date of Study: 07/06/2021 Ordering Physician: JAVIER STREETER, Referring Physician: JAVIER STREETER, Tech: Amy Roberts [facility] APPROVED REPORT EXAM: Two-dimensional and M-mode echocardiogram with Doppler and color Doppler. Other Information Quality : GoodHR: 78bpm Rhythm : NSR INDICATION Palpitations Chest Pain 2D DIMENSIONS RVDd3.3 (2.9-3.5cm)Left Atrium(2D)3.1 (1.6-4.0cm) IVSd0.8 (0.7-1.1cm)Aortic Root(2D)2.8 (2.0-3.7cm) LVDd4.7 (3.9-5.9cm)LVOT Diameter1.9 (1.8-2.4cm) PWd0.9 (0.7-1.1cm)LVDs2.9 (2.5-4.0cm) FS (%) 38.3 %SV69.2 ml LVEF(%)68.5 (>50%) Aortic Valve AoV Peak Hilario.112.2cm/sAoV VTI21.1cm AO Peak GR.5.0mmHgLVOT Peak Hilario.115.3cm/s AO Mean GR.2mmHgAVA (VMAX)2.90cm2 Mitral Valve MV E Atrbdvzg13.8cm/sMV DECEL [id number] MV A Qpbicyik16.7cm/sE/A Ratio1.3 Tricuspid Valve TR P. [id number]/sTR Peak Gr.14mmHg LEFT VENTRICLE The left ventricle is normal size. There is normal left ventricular wall thickness. The left ventricu lar systolic function is normal. Estimated ejection fraction 60%. There is normal LV segmental wall motion. The left ventricular diastolic function and filling is normal for age. RIGHT VENTRICLE The right ventricle is normal size. There is normal right ventricular wall thickness. The right ventr icular systolic function is normal. ATRIA The left atrium size is normal. The right atrium size is normal. The interatrial septum is intact wit h no evidence for an atrial septal defect or patent foramen ovale as noted on 2-D or Doppler imaging. AORTIC VALVE The aortic valve is normal in structure and function. Doppler and Color Flow revealed no significant aortic regurgitation. There is no significant aortic valvular stenosis. MITRAL VALVE The mitral valve is normal in structure and function. There is no evidence of mitral valve prolapse. There is no mitral valve stenosis. Doppler and Color Flow revealed no mitral valve regurgitation note d. TRICUSPID VALVE The tricuspid valve is normal in structure and function. Doppler and Color Flow revealed trace tricus pid regurgitation. Estimated PAP 20 mmmHG. There is no tricuspid valve stenosis. PULMONIC VALVE The pulmonary valve is normal in structure and function. Doppler and Color Flow revealed trace pulmon ic valvular regurgitation. GREAT VESSELS The aortic root is normal in size. The ascending aorta is normal in size. The IVC is normal in size a nd collapses >50% with inspiration. PERICARDIAL EFFUSION There is no evidence of significant pericardial effusion. Critical Notification Critical Value: No <Conclusion> The left ventricular systolic function is normal. Estimated ejection fraction 60%. There is normal LV segmental wall motion. Trace tricuspid regurgitation. Estimated PAP 20 mmmHG. There is no evidence of significant pericardial effusion. Signed by : Ashkan Avalos, Electronically Approved : 07/07/2021 11:34:38
== END ==
LOC: ECHO 14:53
PROVIDERS: ATTEND Internal Medicine Cardiovascular Disease
DX: R00.2 Palpitations (principal); R07.9 Chest pain, unspecified
CPT/HCPCS: 93306; C8929